=== PATIENT | male | born 1950 | race Caucasian/White ===

== ENCOUNTER 2017-02-07 09:15 | Emergency (ER) | payer OTHER ==
[~2017-02-07] VITALS: Ht 172.7 cm; Wt 105.0 kg
[2017-02-07 09:25] VITALS: Ht 172.7 cm; Wt 105.0 kg
[2017-02-07] MEDS ORDERED: MUPI22OI2 TOP (10:16)
[2017-02-07] MEDS ORDERED: DOXY100T20 PO (10:16)
[2017-02-07] MEDS ORDERED: CEPH-443 PO (10:16)
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
== END 2017-02-07 10:47 | disposition home or self-care (01) ==
LOC: FTE 09:15
DX: L03.114 Cellulitis of left upper limb (principal)
CPT/HCPCS: 99284